=== PATIENT | female | born 1940 | race Caucasian/White ===

== ENCOUNTER 2021-06-25 19:20 | Inpatient (IN) | payer MEDICARE, BC ==
[2021-06-25 20:18] LABS: #Eosinphils 0.2 10x3/uL (0.0-0.5); #Monocytes 0.5 10x3/uL (0.0-1.1); #Neutrophils 3.7 10x3/uL (1.5-8.4); %Basophils 0.6 % (0.0-2.0); %Eosinophils 3.2 % (0.0-6.0); %Lymphocytes 27.5 % (18.0-47.0); %Monocytes 7.9 % (0.0-10.0); %Neutrophils 60.5 % (40.0-75.0); Hemoglobin 10.3 g/dL (12.0-15.5); Mean Corpuscular HGB CONC 34.4 g/dL (32.0-36.0); Mean Corpuscular Volume 87.2 fl (81.6-98.3); Mean Platelet Volume 10.1 fl (7.4-10.4); Platelet Count 233 10x3/uL (150-450); RBC Distribution Width 14.8 % (11.5-14.5); Red Blood Cell (RBC) Count 3.43 10x6/uL (3.90-5.03); White Blood Cell (WBC) Count 6.2 10x3/uL (3.5-10.5)
[2021-06-25 20:30] LABS: ALT (SGPT) 19 U/L (8-55); AST (SGOT) 15 U/L (5-34); Albumin 3.7 g/dL (3.4-4.8); Alkaline Phosphatase 40 U/L (40-110); Anion Gap 14 mmol/L (10-20); BUN (Urea Nitrogen) 39 mg/dL (9.8-20.1); Bilirubin, Total 0.3 mg/dL (0.2-1.2); Calc. Creatinine Clearance 0 mL/min (70-130); Calcium 8.5 mg/dL (7.8-10.44); Carbon Dioxide 24 mmol/L (23-31); Chloride 100 mmol/L (98-107); Globulin 2.3 g/dL (2.4-3.5); Glucose 132 mg/dL (83-110); Potassium 3.7 mmol/L (3.5-5.1); Sodium 134 mmol/L (136-145)
[2021-06-25 21:01] LABS: SARS-CoV-2 NAA Rapid Test Not Detected (NotDetected)
[2021-06-25] MEDS ORDERED: Acetaminophen 500 MG TAB ONE (21:43)
[2021-06-25] MEDS ORDERED: Pregabalin 50 MG CAP PO SCH (23:45)
[2021-06-25] MEDS ORDERED: TICAGRELOR 90 MG TABLET PO SCH (23:45)
[2021-06-25] MEDS ORDERED: Rosuvastatin 10 MG TAB PO SCH (23:45)
[2021-06-25] MEDS ORDERED: Aspirin 81 mg Enteric Coated Tablet PO SCH (23:45)
[2021-06-25] MEDS ORDERED: methylPREDNISolone 4 mg Tablet PO SCH (23:45)
[2021-06-25] MEDS ORDERED: Cefdinir 300 MG CAP PO SCH (23:45)
[2021-06-25 23:55] LABS: Magnesium 1.8 mg/dL (1.6-2.6)
[2021-06-25 23:59] LABS: Troponin I Less than 0.010 ng/mL (< 0.028)
[2021-06-26 00:25] VITALS: BMI 19.5
[2021-06-26 04:54] LABS: #Eosinphils 0.2 10x3/uL (0.0-0.5); #Monocytes 0.5 10x3/uL (0.0-1.1); #Neutrophils 3.9 10x3/uL (1.5-8.4); %Basophils 0.5 % (0.0-2.0); %Eosinophils 2.4 % (0.0-6.0); %Lymphocytes 26.8 % (18.0-47.0); %Monocytes 8.5 % (0.0-10.0); %Neutrophils 61.6 % (40.0-75.0); Hemoglobin 9.1 g/dL (12.0-15.5); Mean Corpuscular HGB CONC 34.3 g/dL (32.0-36.0); Mean Corpuscular Hemoglobin 29.4 pg (27.0-33.0); Mean Corpuscular Volume 85.5 fl (81.6-98.3); Mean Platelet Volume 9.9 fl (7.4-10.4); Platelet Count 226 10x3/uL (150-450); RBC Distribution Width 14.9 % (11.5-14.5); White Blood Cell (WBC) Count 6.3 10x3/uL (3.5-10.5)
[2021-06-26 05:13] LABS: Anion Gap 14 mmol/L (10-20); BUN (Urea Nitrogen) 39 mg/dL (9.8-20.1); Calc. Creatinine Clearance 64 mL/min (70-130); Calcium 8.3 mg/dL (7.8-10.44); Carbon Dioxide 22 mmol/L (23-31); Chloride 103 mmol/L (98-107); Glucose 98 mg/dL (83-110); Sodium 135 mmol/L (136-145)
[2021-06-26] MEDS ORDERED: Multivitamin W/ Minerals 1 TAB PO SCH (09:00)
[2021-06-26] MEDS ORDERED: Cholecalciferol 1,000 UNITS (25 MCG) TAB PO SCH (09:00)
[2021-06-26] MEDS: Cefdinir 300 MG CAP PO SCH ×2 (09:44→20:21)
[2021-06-26] MEDS: Docusate 100 MG CAP PO SCH ×2 (09:44→20:22)
[2021-06-26] MEDS: Cyanocobalamin (Vitamin B-12) 1,000 MCG TAB PO SCH (09:46)
[2021-06-26] MEDS: TICAGRELOR 90 MG TABLET PO SCH ×2 (09:46→20:21)
[2021-06-26] MEDS: Enoxaparin Sodium 40 MG/0.4 ML SYRINGE SC SCH (09:46)
[2021-06-26] MEDS: Timolol 0.5% Ophth Soln 5 ml Bottle EA EYE SCH (09:47)
[2021-06-26] MEDS: Acetaminophen 325 MG TAB PO PRN ×2 (09:59→16:51)
[2021-06-26] MEDS ORDERED: Sodium Chloride 0.9% 1,000 ML IV SCH ×2 (13:15→14:00)
[2021-06-26] MEDS: Sodium Chloride 0.9% 1,000 ML IV SCH ×4 (13:35→23:58)
[2021-06-26] MEDS: Cholecalciferol 1,000 UNITS (25 MCG) TAB PO SCH ×2 (13:49→20:21)
[2021-06-26] MEDS: Multivitamin W/ Minerals 1 TAB PO SCH (13:49)
[2021-06-26] MEDS ORDERED: Scopolamine 1.5 mg/72 hour Patch TOP SCH (18:00)
[2021-06-26] MEDS ORDERED: rOPINIRole HCl 0.25 MG TAB PO SCH (18:45)
[2021-06-26] MEDS: DULoxetine 30 MG CAP PO SCH (20:18)
[2021-06-26] MEDS: Rosuvastatin 10 MG TAB PO SCH (20:20)
[2021-06-26] MEDS ORDERED: Pregabalin 50 MG CAP PO SCH (21:00)
[2021-06-27] MEDS: Sodium Chloride 0.9% 1,000 ML IV SCH ×2 (04:51→16:20)
[2021-06-27] MEDS ORDERED: Azithromycin 250 MG TAB PO SCH (09:15)
[2021-06-27] MEDS: Enoxaparin Sodium 40 MG/0.4 ML SYRINGE SC SCH (09:44)
[2021-06-27] MEDS: Cyanocobalamin (Vitamin B-12) 1,000 MCG TAB PO SCH (09:44)
[2021-06-27] MEDS: TICAGRELOR 90 MG TABLET PO SCH ×2 (09:44→20:10)
[2021-06-27] MEDS: Docusate 100 MG CAP PO SCH ×2 (09:45→20:11)
[2021-06-27] MEDS: Acetaminophen 325 MG TAB PO PRN (09:51)
[2021-06-27] MEDS: Timolol 0.5% Ophth Soln 5 ml Bottle EA EYE SCH (13:06)
[2021-06-27] MEDS: Cholecalciferol 1,000 UNITS (25 MCG) TAB PO SCH ×2 (13:08→13:10)
[2021-06-27] MEDS: Multivitamin W/ Minerals 1 TAB PO SCH (13:08)
[2021-06-27] MEDS: Rosuvastatin 10 MG TAB PO SCH (20:08)
[2021-06-27] MEDS: Pregabalin 75 MG CAP PO SCH (20:08)
[2021-06-27] MEDS: DULoxetine 30 MG CAP PO SCH (20:09)
[2021-06-27] MEDS ORDERED: rOPINIRole HCl 0.25 MG TAB PO SCH (21:00)
[2021-06-28] MEDS: Acetaminophen 325 MG TAB PO PRN ×2 (04:40→10:54)
[2021-06-28] MEDS: Sodium Chloride 0.9% 1,000 ML IV SCH (05:53)
[2021-06-28] MEDS: Cefdinir 300 MG CAP PO SCH (07:49)
[2021-06-28] MEDS ORDERED: Azithromycin 250 MG TAB PO SCH (09:00)
[2021-06-28] MEDS ORDERED: Aspirin 81 mg Enteric Coated Tablet PO SCH (09:00)
[2021-06-28] MEDS: Enoxaparin Sodium 40 MG/0.4 ML SYRINGE SC SCH (09:46)
[2021-06-28] MEDS: Cyanocobalamin (Vitamin B-12) 1,000 MCG TAB PO SCH (09:47)
[2021-06-28] MEDS: Docusate 100 MG CAP PO SCH (09:48)
[2021-06-28] MEDS: TICAGRELOR 90 MG TABLET PO SCH (09:48)
[2021-06-28] MEDS ORDERED: cefTRIAXone\\ROCEPHIN 2 GM in Sodium Chloride 0.9% 100 ML IVPB SCH (10:30)
[2021-06-28] MEDS: Timolol 0.5% Ophth Soln 5 ml Bottle EA EYE SCH (10:59)
[2021-06-28] MEDS ORDERED: Pregabalin 50 MG CAP PO SCH (11:00)
[2021-06-28] MEDS: Pregabalin 75 MG CAP PO SCH (11:00)
[2021-06-28] MEDS: Multivitamin W/ Minerals 1 TAB PO SCH (13:07)
[2021-06-28] MEDS: Cholecalciferol 1,000 UNITS (25 MCG) TAB PO SCH (13:07)
[2021-06-28 13:20] LABS: Bilirubin Neg (Negative); Blood, Urine Negative (Negative); Clarity Clear (Clear); Glucose, Urine (Dipstick) Normal (Negative); Ketone, Urine Negative (Negative); Leukocyte 25 (Negative); Nitrite Negative (Negative); Protein, Urine (Dipstick) Negative (Neg-Trace); Specific Gravity, Urine 1.005 (1.002-1.036); Urobilinogen Normal mg/dL (Less than 2)
[2021-06-28 13:24] LABS: Urine Culture Reflex No No
[2021-06-28 13:42] LABS: Bacteria/HPF Rare-Few HPF (None Seen); RBC/HPF 0-3 HPF (0-3); Squamous Epithelial 0-3 HPF (0-3)
[2021-06-28 17:02] VITALS: BP 107/72; TEMP 99
[2021-06-28] MEDS ORDERED: Pregabalin 75 MG CAP PO SCH (21:00)
[2021-06-29] MEDS ORDERED: Aspirin 81 mg Enteric Coated Tablet PO SCH (09:00)
== END 2021-06-28 19:11 | disposition home or self-care (01) | DRG 641 ==
LOC: CSHERS 19:20 → OBSVTOIN 23:39 → INTOOBSV 23:39 → UNDOADMOB 23:39 → CSHTELE 23:39 → OBSVTOIN 06-28 13:55 → CSHTELE 06-28 13:55
PROVIDERS: ADMIT Family Medicine; ATTEND Internal Medicine
DX: E86.0 Dehydration (principal); N39.0 Urinary tract infection, site not specified; I25.10 Atherosclerotic heart disease of native coronary artery without angina pectoris; G25.81 Restless legs syndrome; J06.9 Acute upper respiratory infection, unspecified; M54.50 Low back pain, unspecified; G89.29 Other chronic pain; J32.9 Chronic sinusitis, unspecified; I95.9 Hypotension, unspecified; E78.5 Hyperlipidemia, unspecified; E86.9 Volume depletion, unspecified; Z20.822 Contact with and (suspected) exposure to COVID-19; Z79.82 Long term (current) use of aspirin; Z79.899 Other long term (current) drug therapy; Z79.02 Long term (current) use of antithrombotics/antiplatelets; Z88.0 Allergy status to penicillin; Z98.49 Cataract extraction status, unspecified eye; Z90.710 Acquired absence of both cervix and uterus; Z95.5 Presence of coronary angioplasty implant and graft; Z72.89 Other problems related to lifestyle; Z82.49 Family history of ischemic heart disease and other diseases of the circulatory system; Z80.9 Family history of malignant neoplasm, unspecified; Z90.722 Acquired absence of ovaries, bilateral
CPT/HCPCS: 36416; 70450; 71045; 80048; 80053; 81001; 83735; 84484; 85025; 87086; 93005; 93010; 93306; 96372; 96374; G0378; J0696; J1650; J3490; J7050; J7509; U0002

== ENCOUNTER 2021-07-07 11:42 | Inpatient (IN) | payer MEDICARE, BC ==
[2021-07-07 12:56] LABS: #Eosinphils 0.2 10x3/uL (0.0-0.5); #Monocytes 0.4 10x3/uL (0.0-1.1); %Basophils 1.2 % (0.0-2.0); %Eosinophils 7.3 % (0.0-6.0); %Monocytes 12.5 % (0.0-10.0); Hemoglobin 5.9 g/dL (12.0-15.5); Mean Corpuscular Hemoglobin 29.1 pg (27.0-33.0); Mean Corpuscular Volume 88.2 fl (81.6-98.3); Mean Platelet Volume 9.2 fl (7.4-10.4); Platelet Count 476 10x3/uL (150-450); RBC Distribution Width 16.7 % (11.5-14.5); Red Blood Cell (RBC) Count 2.03 10x6/uL (3.90-5.03); White Blood Cell (WBC) Count 3.3 10x3/uL (3.5-10.5)
[2021-07-07 13:09] LABS: ALT (SGPT) 20 U/L (8-55); AST (SGOT) 17 U/L (5-34); Albumin 4.2 g/dL (3.4-4.8); Alkaline Phosphatase 33 U/L (40-110); Anion Gap 13 mmol/L (10-20); BUN (Urea Nitrogen) 17 mg/dL (9.8-20.1); Bilirubin, Total 0.4 mg/dL (0.2-1.2); Calc. Creatinine Clearance 0 mL/min (70-130); Calcium 9.5 mg/dL (7.8-10.44); Carbon Dioxide 26 mmol/L (23-31); Chloride 100 mmol/L (98-107); Globulin 2.6 g/dL (2.4-3.5); Glucose 98 mg/dL (83-110); Protein, Total 6.8 g/dL (5.8-8.1); Sodium 135 mmol/L (136-145)
[2021-07-07 14:00] LABS: INR-International Normal Ratio 0.9; PTT 22.3 sec (22.0-33.0); Prothrombin Time 10.3 sec (9.5-12.1)
[2021-07-07] MEDS ORDERED: Acetaminophen 325 MG TAB PO PRN (15:30)
[2021-07-07] MEDS ORDERED: Ondansetron ODT 4 MG TAB PO PRN (15:30)
[2021-07-07] MEDS ORDERED: Ondansetron PF 4 MG/2 ML Vial IVP PRN (15:30)
[2021-07-07 17:08] VITALS: BMI 19.7
[2021-07-07] MEDS ORDERED: rOPINIRole HCl 1 MG TAB PO SCH (18:00)
[2021-07-07] MEDS: TICAGRELOR 90 MG TABLET PO SCH (20:37)
[2021-07-08 00:23] LABS: Hemoglobin 8.5 g/dL (12.0-15.5); Platelet Count 378 10x3/uL (150-450)
[2021-07-08 04:43] LABS: #Basophils 0.1 10x3/uL (0.0-0.2); #Eosinphils 0.3 10x3/uL (0.0-0.5); #Monocytes 0.5 10x3/uL (0.0-1.1); %Basophils 1.2 % (0.0-2.0); %Eosinophils 7.9 % (0.0-6.0); %Lymphocytes 26.5 % (18.0-47.0); %Monocytes 10.7 % (0.0-10.0); Hemoglobin 8.6 g/dL (12.0-15.5); Mean Corpuscular HGB CONC 33.7 g/dL (32.0-36.0); Mean Corpuscular Hemoglobin 29.1 pg (27.0-33.0); Mean Corpuscular Volume 86.1 fl (81.6-98.3); Mean Platelet Volume 9.1 fl (7.4-10.4); Platelet Count 390 10x3/uL (150-450); RBC Distribution Width 16.5 % (11.5-14.5); Red Blood Cell (RBC) Count 2.96 10x6/uL (3.90-5.03); White Blood Cell (WBC) Count 4.2 10x3/uL (3.5-10.5)
[2021-07-08 05:04] LABS: Anion Gap 14 mmol/L (10-20); BUN (Urea Nitrogen) 13 mg/dL (9.8-20.1); Calc. Creatinine Clearance 67 mL/min (70-130); Calcium 8.7 mg/dL (7.8-10.44); Carbon Dioxide 24 mmol/L (23-31); Chloride 104 mmol/L (98-107); Glucose 92 mg/dL (83-110); Potassium 4.1 mmol/L (3.5-5.1); Sodium 138 mmol/L (136-145)
[2021-07-08] MEDS ORDERED: TICAGRELOR 90 MG TABLET PO SCH (09:00)
[2021-07-08] MEDS: TICAGRELOR 90 MG TABLET PO SCH ×2 (13:34→20:34)
[2021-07-08] MEDS ORDERED: PROPOFOL 20 ML ONE (14:25)
[2021-07-08] MEDS ORDERED: Lidocaine 1% PF 5 ML VIAL ONE (14:25)
[2021-07-08] MEDS: Pregabalin 50 MG CAP PO SCH (15:25)
[2021-07-08 15:31] LABS: SARS-CoV-2 PCR by NAA Not Detected (NotDetected)
[2021-07-08] MEDS ORDERED: rOPINIRole HCl 1 MG TAB PO SCH (21:00)
[2021-07-09 05:15] LABS: #Basophils 0.1 10x3/uL (0.0-0.2); #Eosinphils 0.3 10x3/uL (0.0-0.5); #Monocytes 0.5 10x3/uL (0.0-1.1); #Neutrophils 2.3 10x3/uL (1.5-8.4); %Basophils 1.4 % (0.0-2.0); %Eosinophils 7.9 % (0.0-6.0); %Lymphocytes 23.6 % (18.0-47.0); %Neutrophils 55.9 % (40.0-75.0); Hemoglobin 8.9 g/dL (12.0-15.5); Mean Corpuscular HGB CONC 33.2 g/dL (32.0-36.0); Mean Corpuscular Hemoglobin 28.8 pg (27.0-33.0); Mean Corpuscular Volume 86.7 fl (81.6-98.3); Mean Platelet Volume 9.1 fl (7.4-10.4); Platelet Count 408 10x3/uL (150-450); RBC Distribution Width 16.4 % (11.5-14.5); Red Blood Cell (RBC) Count 3.09 10x6/uL (3.90-5.03); White Blood Cell (WBC) Count 4.2 10x3/uL (3.5-10.5)
[2021-07-09 05:29] LABS: ALT (SGPT) 17 U/L (8-55); AST (SGOT) 15 U/L (5-34); Albumin 3.8 g/dL (3.4-4.8); Alkaline Phosphatase 35 U/L (40-110); Anion Gap 13 mmol/L (10-20); BUN (Urea Nitrogen) 13 mg/dL (9.8-20.1); Bilirubin, Total 0.7 mg/dL (0.2-1.2); Calc. Creatinine Clearance 63 mL/min (70-130); Calcium 8.7 mg/dL (7.8-10.44); Carbon Dioxide 24 mmol/L (23-31); Chloride 103 mmol/L (98-107); Globulin 2.4 g/dL (2.4-3.5); Glucose 97 mg/dL (83-110); Protein, Total 6.2 g/dL (5.8-8.1); Sodium 136 mmol/L (136-145)
[2021-07-09] MEDS: Pregabalin 50 MG CAP PO SCH (09:33)
[2021-07-09] MEDS: TICAGRELOR 90 MG TABLET PO SCH (09:33)
[2021-07-09 12:00] VITALS: BP 137/73; TEMP 97.2
[2021-07-10] MEDS ORDERED: Aspirin 81 mg Enteric Coated Tablet PO SCH (09:00)
== END 2021-07-09 14:21 | disposition home or self-care (01) | DRG 384 ==
LOC: CSHERS 11:42 → INTOOBSV 16:13 → CSHTELE 16:13 → OBSVTOIN 07-08 13:00
PROVIDERS: ADMIT Internal Medicine; ATTEND Student in an Organized Health Care Education/Training Program
PROC: 30233N1 Transfusion of Nonautologous Red Blood Cells into Peripheral Vein, Percutaneous Approach (ICD-10-PCS; principal; 2021-07-07)
PROC: 0DB68ZX Excision of Stomach, Via Natural or Artificial Opening Endoscopic, Diagnostic (ICD-10-PCS; 2021-07-08)
DX: K25.9 Gastric ulcer, unspecified as acute or chronic, without hemorrhage or perforation (principal); D64.9 Anemia, unspecified; Z20.822 Contact with and (suspected) exposure to COVID-19; M54.50 Low back pain, unspecified; E78.5 Hyperlipidemia, unspecified; G25.81 Restless legs syndrome; T39.395A Adverse effect of other nonsteroidal anti-inflammatory drugs [NSAID], initial encounter; G89.29 Other chronic pain; K21.9 Gastro-esophageal reflux disease without esophagitis; M19.90 Unspecified osteoarthritis, unspecified site; F41.9 Anxiety disorder, unspecified; K29.70 Gastritis, unspecified, without bleeding; I10 Essential (primary) hypertension; I25.10 Atherosclerotic heart disease of native coronary artery without angina pectoris; Z95.5 Presence of coronary angioplasty implant and graft; Z88.0 Allergy status to penicillin; Z79.82 Long term (current) use of aspirin; Z79.899 Other long term (current) drug therapy; Z90.710 Acquired absence of both cervix and uterus; Z90.722 Acquired absence of ovaries, bilateral; Z98.49 Cataract extraction status, unspecified eye; Z82.49 Family history of ischemic heart disease and other diseases of the circulatory system; Z87.440 Personal history of urinary (tract) infections
CPT/HCPCS: 36415; 36430; 80048; 80053; 82274; 84484; 85025; 85610; 85730; 86850; 86900; 86901; 88305; 93005; 94760; G0378; J2704; P9016; U0003; U0005

== ENCOUNTER 2021-09-21 15:02 | Outpatient (CLI) | payer MEDICARE, BC ==
[~2021-09-21 15:02] MED LIST: Iopamidol 300 61% 100 ML VIAL FS ONE
== END 2021-09-21 15:03 | disposition home or self-care (01) ==
LOC: CSHCT 15:02
PROVIDERS: ATTEND Urology
DX: R31.0 Gross hematuria (principal); K59.00 Constipation, unspecified; Z90.710 Acquired absence of both cervix and uterus
CPT/HCPCS: 74178; 82565; Q9967